=== PATIENT | female | born 1955 | race Caucasian/White ===

== ENCOUNTER → 2016-04-08 | Outpatient (CLI) | payer OTHER, BC ==
[2016-04-08 10:31] LABS: ANION GAP 5 MEQ/L (8-16); BLOOD UREA NITROGEN 16 MG/DL (7-18); CALCIUM LEVEL 8.9 MG/DL (8.8-10.2); CARBON DIOXIDE LEVEL 31 MEQ/L (21-32); CHLORIDE LEVEL 105 MEQ/L (98-107); CREATININE FOR GFR 0.71 MG/DL (0.55-1.02); GLOMERULAR FILTRATION RATE > 60.0 (>45); GLUCOSE, FASTING 93 MG/DL (80-110); POTASSIUM SERUM 3.9 MEQ/L (3.5-5.1); SODIUM LEVEL 141 MEQ/L (136-145)
== END ==
LOC: M LAB 09:53
PROVIDERS: ATTEND Internal Medicine
DX: S13.4XXA Sprain of ligaments of cervical spine, initial encounter (principal); X58.XXXA Exposure to other specified factors, initial encounter; Y92.89 Other specified places as the place of occurrence of the external cause; Y93.89 Activity, other specified; Y99.8 Other external cause status

== ENCOUNTER → 2016-08-03 | Outpatient (CLI) | payer BC, OTHER ==
[2016-08-03 13:45] LABS: MEAN CORPUSCULAR HEMOGLOBIN 31.7 pg (27.0-33.0); MEAN CORPUSCULAR HGB CONC 33.2 g/dl (32.0-36.5); MEAN CORPUSCULAR VOLUME 95.5 fl (80.0-96.0); RED CELL DISTRIBUTION WIDTH 13.2 % (11.5-14.5); WHITE BLOOD COUNT 6.7 K/mm3 (4.0-10.0)
[2016-08-03 14:15] LABS: ALBUMIN 3.9 GM/DL (3.2-5.2); ALBUMIN/GLOBULIN RATIO 1.15 (1.00-1.93); ALKALINE PHOSPHATASE 79 U/L (45-117); ALT/SGPT 24 U/L (12-78); ANION GAP 7 MEQ/L (8-16); AST/SGOT 16 U/L (15-37); BILIRUBIN,TOTAL 0.3 MG/DL (0.2-1.0); BLOOD UREA NITROGEN 19 MG/DL (7-18); CALCIUM LEVEL 9.2 MG/DL (8.8-10.2); CARBON DIOXIDE LEVEL 29 MEQ/L (21-32); CHLORIDE LEVEL 102 MEQ/L (98-107); CREATININE FOR GFR 0.75 MG/DL (0.55-1.02); GLOMERULAR FILTRATION RATE > 60.0 (>45); GLUCOSE, FASTING 80 MG/DL (80-110); IMMUNOGLOBULIN G 1020 MG/DL (681-1648); POTASSIUM SERUM 4.7 MEQ/L (3.5-5.1); SODIUM LEVEL 138 MEQ/L (136-145); TOTAL PROTEIN 7.3 GM/DL (6.4-8.2)
== END ==
LOC: M SMT 10:28
PROVIDERS: ATTEND Nurse Practitioner Family
DX: D83.9 Common variable immunodeficiency, unspecified (principal)

== ENCOUNTER → 2016-10-04 | Outpatient (CLI) | payer OTHER ==
[2016-10-04 19:40] LABS: ANION GAP 6 MEQ/L (8-16); BLOOD UREA NITROGEN 13 MG/DL (7-18); CALCIUM LEVEL 9.2 MG/DL (8.8-10.2); CARBON DIOXIDE LEVEL 29 MEQ/L (21-32); CHLORIDE LEVEL 106 MEQ/L (98-107); CREATININE FOR GFR 0.72 MG/DL (0.55-1.02); GLOMERULAR FILTRATION RATE > 60.0 (>45); GLUCOSE, FASTING 97 MG/DL (80-110); SODIUM LEVEL 141 MEQ/L (136-145)
== END ==
LOC: M SMT 11:13
PROVIDERS: ATTEND Orthopaedic Surgery
DX: Z79.899 Other long term (current) drug therapy (principal)

== ENCOUNTER → 2016-12-18 | Outpatient (CLI) | payer BC ==
--- NOTE | 2016-12-19 06:10 | REP ---
CHEST, TWO VIEWS: COMPARISON: 10/12/2015. There is no evidence of acute infiltrate. No pleural effusion is seen. The heart is normal in size. The mediastinal silhouette is unremarkable. The visualized osseous structures are intact. IMPRESSION: No acute pulmonary disease. Signed by Massimo Dubois MD 12/19/2016 05:22 P
== END ==
LOC: M LRY 13:39
PROVIDERS: ATTEND Nurse Practitioner Family
DX: R05 Cough (principal)

== ENCOUNTER → 2017-02-21 | Outpatient (CLI) | payer BC ==
[2017-02-21 12:19] LABS: MAGNESIUM LEVEL 2.4 MG/DL (1.8-2.4)
== END ==
LOC: M LRY 09:53
PROVIDERS: ATTEND Internal Medicine Gastroenterology
DX: E55.9 Vitamin D deficiency, unspecified (principal); E56.9 Vitamin deficiency, unspecified; K21.9 Gastro-esophageal reflux disease without esophagitis

== ENCOUNTER → 2017-03-06 | Outpatient (REF) | payer BC, OTHER ==
[2017-03-06 19:57] LABS: BLOOD UREA NITROGEN 12 MG/DL (7-18); CREATININE FOR GFR 0.69 MG/DL (0.55-1.02); GLOMERULAR FILTRATION RATE > 60.0 (>45)
== END ==
LOC: M LAB REF 19:07
PROVIDERS: ATTEND Orthopaedic Surgery
DX: M76.821 Posterior tibial tendinitis, right leg (principal)

== ENCOUNTER → 2017-03-24 | Outpatient (CLI) | payer BC | LOC: M RAD 14:09 | DX: M76.821 Posterior tibial tendinitis, right leg (principal) | CPT/HCPCS: 73721 ==

== ENCOUNTER 2017-05-16 06:00 | Inpatient (IN) | payer BC ==
[2017-05-16] MEDS ORDERED: ROCURONIUM BROMIDE 50 MG/5 ML VIAL As Ordered ×6 (06:57→11:09)
[2017-05-16] MEDS ORDERED: PROPOFOL 200 MG/20 ML VIAL As Ordered ×2 (06:57)
[2017-05-16] MEDS ORDERED: GLYCOPYRROLATE INJ 0.2 MG/ML 2 ML VIAL As Ordered ×4 (06:58→06:59)
[2017-05-16] MEDS: LR 1,000 ML IV ×6 (07:00→15:00)
[2017-05-16] MEDS ORDERED: MIDAZOLAM INJ 2 MG/2 ML VIAL (J2250) As Ordered ×4 (07:04→07:20)
[2017-05-16] MEDS ORDERED: fentaNYL 250 MCG/5 ML INJECTION (J3010) As Ordered ×4 (07:04→12:03)
[2017-05-16] MEDS: VANCOMYCIN HCL 1,000 MG, VIAL MATE ADAPTER 1 EACH in D5W 250 ML IV ×4 (07:05→18:13)
[2017-05-16] MEDS ORDERED: fentaNYL 100 MCG/2 ML INJECTION (J3010) As Ordered ×4 (07:20→14:34)
[2017-05-16] MEDS: MIDAZOLAM INJ 2 MG/2 ML VIAL (J2250) IV ×2 (07:28)
[2017-05-16] MEDS: fentaNYL 100 MCG/2 ML INJECTION (J3010) IV ×10 (07:28→14:57)
[2017-05-16] MEDS ORDERED: ePHEDrine INJ 50 MG/ML VIAL As Ordered ×2 (08:24)
[2017-05-16] MEDS: HEPARIN SOD (PORCINE) 5000 UNITS/ML VIAL As Ordered ×2 (08:30)
[2017-05-16] MEDS: SCOPOLAMINE 1MG TRANSDERMAL PATCH As Ordered ×2 (09:51)
[2017-05-16] MEDS ORDERED: NEOSTIGMINE 10 MG/10 ML VIAL (J2710) As Ordered ×2 (11:40)
[2017-05-16] MEDS ORDERED: ONDANSETRON 4MG/2ML VIAL (J2405) As Ordered ×2 (12:54)
[2017-05-16] MEDS: BUPIVACAINE HCL 0.5% 30 ML VIAL As Ordered ×2 (13:25)
[2017-05-16] MEDS ORDERED: PERCOCET 5MG/325MG TAB As Ordered ×2 (14:33)
[2017-05-16] MEDS: PERCOCET 5MG/325MG TAB PO ×2 (14:37)
[2017-05-16] MEDS ORDERED: HYDROmorphone HCL 1 MG/ML SYRINGE (J1170) IV ×2 (15:00)
[2017-05-16] MEDS ORDERED: oxyCODONE 5MG TAB PO ×2 (15:00)
[2017-05-16] MEDS ORDERED: MORPHINE 2 MG/ML 1ML SYRINGE (J2270) IV ×2 (15:00)
[2017-05-16] MEDS ORDERED: ONDANSETRON 4MG/2ML VIAL (J2405) IV ×2 (15:00)
[2017-05-16] MEDS ORDERED: FLEET ENEMA PR ×2 (15:00)
[2017-05-16] MEDS ORDERED: ROPIvacaine 0.5% 30 ML INJECTION (J2795 PER 1MG) ×2 (15:26)
[2017-05-16] MEDS ORDERED: LIDOCAINE 1% MDV 20ML VIAL ×2 (15:26)
[2017-05-16] MEDS ORDERED: dexameTHASONE 10 MG/1 ML VIAL PRES.FREE (J1100) ×2 (15:26)
[2017-05-16] MEDS: oxyCODONE 5MG TAB PO ×2 (17:12)
[2017-05-16] MEDS: DOCUSATE SODIUM 100 MG CAP PO ×2 (20:28)
[2017-05-16] MEDS: METOCLOPRAMIDE 10 MG TAB PO ×2 (20:28)
[2017-05-16] MEDS: ASPIRIN 81 MG ENTERIC TAB PO ×2 (20:28)
[2017-05-16] MEDS: PANTOPRAZOLE 40MG TAB (PROTONIX) PO ×2 (20:28)
[2017-05-16] MEDS: MONTELUKAST 10 MG TAB PO ×2 (20:28)
[2017-05-16] MEDS: ACETAMINOPHEN 500 MG TAB PO ×2 (20:29)
[2017-05-17] MEDS: VANCOMYCIN HCL 1,000 MG, VIAL MATE ADAPTER 1 EACH in D5W 250 ML IV ×2 (06:26)
[2017-05-17] MEDS: ACETAMINOPHEN 500 MG TAB PO ×6 (06:26→21:48)
[2017-05-17] MEDS: VITAMIN D 1,000 INTERNATIONAL UNITS TABLET PO ×2 (08:14)
[2017-05-17] MEDS: CYANOCOBALAMIN 500 MCG TAB PO ×2 (08:15)
[2017-05-17] MEDS: TOLTERODINE TARTRATE 2 MG LA CAP (DETROL LA) PO ×2 (08:15)
[2017-05-17] MEDS: DOCUSATE SODIUM 100 MG CAP PO ×4 (08:15→20:08)
[2017-05-17] MEDS: ASPIRIN 81 MG ENTERIC TAB PO ×4 (08:15→20:08)
[2017-05-17] MEDS: PANTOPRAZOLE 40MG TAB (PROTONIX) PO ×4 (08:15→20:08)
[2017-05-17] MEDS: METOCLOPRAMIDE 10 MG TAB PO ×4 (08:15→20:08)
[2017-05-17] MEDS: oxyCODONE 5MG TAB PO ×8 (08:18→21:47)
[2017-05-17] MEDS: MORPHINE 4 MG/ML 1ML VIAL (J2270) IV ×6 (13:30→23:56)
[2017-05-17] MEDS: MONTELUKAST 10 MG TAB PO ×2 (20:08)
[2017-05-18] MEDS: ACETAMINOPHEN 500 MG TAB PO ×2 (05:14)
[2017-05-18] MEDS: oxyCODONE 5MG TAB PO ×4 (05:15→12:07)
[2017-05-18] MEDS ORDERED: oxyCODONE 5MG TAB PO ×2 (07:45)
[2017-05-18] MEDS: METOCLOPRAMIDE 10 MG TAB PO ×2 (08:46)
[2017-05-18] MEDS: VITAMIN D 1,000 INTERNATIONAL UNITS TABLET PO ×2 (08:46)
[2017-05-18] MEDS: DOCUSATE SODIUM 100 MG CAP PO ×2 (08:47)
[2017-05-18] MEDS: TOLTERODINE TARTRATE 2 MG LA CAP (DETROL LA) PO ×2 (08:47)
[2017-05-18] MEDS: PANTOPRAZOLE 40MG TAB (PROTONIX) PO ×2 (08:47)
[2017-05-18] MEDS: ASPIRIN 81 MG ENTERIC TAB PO ×2 (08:47)
[2017-05-18] MEDS: CYANOCOBALAMIN 500 MCG TAB PO ×2 (08:47)
== END 2017-05-18 12:25 | disposition home or self-care (01) | DRG 313 ==
LOC: M OR 06:00 → M MS5PR 15:20
PROC: 0LXV0ZZ Transfer Right Foot Tendon, Open Approach (ICD-10-PCS; principal; 2017-05-16 07:30)
PROC: 0SQF0ZZ Repair Right Ankle Joint, Open Approach (ICD-10-PCS; 2017-05-16 07:30)
PROC: 0LSV0ZZ Reposition Right Foot Tendon, Open Approach (ICD-10-PCS; 2017-05-16 07:30)
PROC: 0QHL04Z Insertion of Internal Fixation Device into Right Tarsal, Open Approach (ICD-10-PCS; 2017-05-16 07:30)
DX: M65.871 Other synovitis and tenosynovitis, right ankle and foot (principal); M24.574 Contracture, right foot; M77.51 Other enthesopathy of right foot and ankle; M21.41 Flat foot [pes planus] (acquired), right foot
CPT/HCPCS: 27691

== ENCOUNTER → 2017-07-31 | Outpatient (CLI) | payer BC | LOC: M SMT 11:19 | DX: R10.9 Unspecified abdominal pain (principal) | CPT/HCPCS: 76770 ==

== ENCOUNTER → 2017-10-27 | Outpatient (REF) | payer BC ==
[2017-10-27 12:15] LABS: BASO % 0.3 % (0.0-1.0); EOS # 0.1 10^3/uL (0.0-0.50); EOS % 0.9 % (0.0-3.0); HEMOGLOBIN 12.9 g/dl (12.0-15.5); IMMATURE GRANULOCYTE % 0.3 % (0-3.0); LYMPH # 1.8 10^3/uL (1.5-4.5); LYMPH % 31.5 % (24.0-44.0); MEAN CORPUSCULAR HEMOGLOBIN 29.9 pg (27.0-33.0); MEAN CORPUSCULAR HGB CONC 32.3 g/dl (32.0-36.5); MEAN CORPUSCULAR VOLUME 92.8 fl (80.0-96.0); MONO # 0.5 10^3/uL (0.0-0.8); NEUTROPHILS # 3.3 10^3/uL (1.8-7.7); PLATELET COUNT, AUTOMATED 246 10^3/uL (150-450); RED BLOOD COUNT 4.31 10^6/uL (4.00-5.40); RED CELL DISTRIBUTION WIDTH 13.7 % (11.5-14.5); WHITE BLOOD COUNT 5.8 10^3/uL (4.0-10.0)
[2017-10-27 12:22] LABS: C REACTIVE PROTEIN QUANTITATIV 0.35 MG/DL (0.00-0.30)
[2017-10-27 12:34] LABS: ERYTHROCYTE SEDIMENTATION RATE 9 mm/hr (0-30)
[2017-10-27 12:37] LABS: TOTAL 25(OH) VITAMIN D 32.9 NG/ML (30.0-100.0)
== END ==
LOC: M LABDRAW1 12:06
DX: M79.671 Pain in right foot (principal)
CPT/HCPCS: 82306

== ENCOUNTER → 2018-09-06 | Outpatient (REF) | payer BC ==
[~2018-09-06] MED LIST: ACID100C PO; ACID1CAP PO; ALLE25CA PO; ARNU1INH IN; ARNU1INH PO; ASPI81TA26 PO; CALC1TAB60 PO; DETR4CAP PO; DICL-235 PO; DIVIGEL TOP; FOLI1TAB11 PO; HYDR200T3 PO; INCR1INH IN; INCR1INH INH; LORA-753 PO; MAGNESIUM PO; METH2.5T48 PO; METO10TA2 PO; MONT10TA2 PO; MULT1TAB10 PO; OCUVTAB4 PO; OXYC-517 PO; PANT40TA3 PO; PENT10CA PO; PLAQUENIL PO; PRESCAP6 PO; REGL5TAB2 PO; STOO100C PO; TOLT4CAP3 PO; TYLE500T78 PO; VITA-113 PO; VITA100054 PO; VITA100T98 PO; VITA500T PO; VITA500T3 PO; ZANT300T9 PO; magnesium PO
[2018-09-08 15:14] LABS: HPV HYBRID CAPTURE II Negative (Negative)
== END ==
LOC: M SFHCWAGY 11:25
PROVIDERS: ATTEND Nurse Practitioner Family
DX: Z12.72 Encounter for screening for malignant neoplasm of vagina (principal)
CPT/HCPCS: 87624; G0123

== ENCOUNTER → 2018-09-06 | Outpatient (CLI) | payer BC ==
--- NOTE | 2018-09-12 12:07 | REPMRS ---
Patient History The patient states she had a clinical breast exam in 08/2018. Patient has history of skin cancer at age 45 and 62. Family history of breast cancer at age 50 or over in father, pancreatic cancer at age 50 or over in sister, breast cancer at age 50 in paternal cousin. Excisional biopsy of the right breast, 2017. Taking estrogen for 22 years. 3D TOMOSYNTHESIS WAS PERFORMED. The [facility] lifetime risk for breast cancer is 11.9%. Digital Woman Screen Mammo: September 06, 2018 - Exam #: [id number] Bilateral CC and MLO view(s) were taken. Technologist: Marleny Kumar, Technologist Prior study comparison: 2017, bilateral digital woman screen mammo, performed at [facility]. 2015, bilateral digital mammo screening bilat, performed at [facility]. FINDINGS: The breast tissue is heterogeneously dense. This may lower the sensitivity of mammography. There has been no change in the appearance of the mammogram from the prior studies. There is a moderate amount of residual fibroglandular tissue which is fairly symmetric. There is no interval development of dominant mass, areas of architectural distortion, or clustered microcalcification typical of malignancy. Assessment: BI-RADS/ACR category 1 mammogram. Negative Mammogram. Recommendation Routine screening mammogram in 1 year (for women over age 40). This mammogram was interpreted with the aid of an FDA-approved computer-aided dectection system. Electronically Signed By: Noel Luther MD 09/12/18 [id number]
== END ==
LOC: M WHC 10:31
PROVIDERS: ATTEND Nurse Practitioner Family
DX: Z12.31 Encounter for screening mammogram for malignant neoplasm of breast (principal)

== ENCOUNTER → 2019-09-09 | Outpatient (CLI) | payer BC ==
[~2019-09-09] MED LIST changes: -ALLE25CA PO; +CYAN500T8 PO; +MM S100C PO; -MONT10TA2 PO; +MONT10TA4 PO; +PHAR25CA PO; -STOO100C PO; +VITA-243 PO; -VITA500T PO; -VITA500T3 PO
--- NOTE | 2019-09-09 12:16 | REPMRS ---
Patient History The patient states she had a clinical breast exam in August 2019.
== END ==
LOC: M WHC 10:14
PROVIDERS: ATTEND Nurse Practitioner Family
DX: Z12.31 Encounter for screening mammogram for malignant neoplasm of breast (principal); Z80.3 Family history of malignant neoplasm of breast

== ENCOUNTER → 2020-03-02 | Outpatient (CLI) | payer BC ==
[~2020-03-02] MED LIST changes: +CYAN500T14 PO; -CYAN500T8 PO; -MONT10TA4 PO; +MONT5TAB2 PO; +PANT40TA29 PO; -PANT40TA3 PO
== END ==
LOC: M LABSMTC 11:13
PROVIDERS: ATTEND Pediatrics
DX: Z20.828 Contact with and (suspected) exposure to other viral communicable diseases (principal)

== ENCOUNTER → 2020-03-16 | Outpatient (REF) | payer BC | LOC: M LAB REF 16:06 | PROVIDERS: ATTEND Physician Assistant Medical | DX: Z11.59 Encounter for screening for other viral diseases (principal) ==

== ENCOUNTER → 2020-03-25 | Outpatient (CLI) | payer BC ==
[2020-03-25 13:04] LABS: BASO % 0.6 % (0.0-1.0); EOS # 0.1 10^3/uL (0.0-0.5); EOS % 1.4 % (0.0-3.0); HEMOGLOBIN 13.4 g/dl (12.0-15.5); LYMPH # 1.9 10^3/uL (1.5-5.0); LYMPH % 30.4 % (24.0-44.0); MEAN CORPUSCULAR HEMOGLOBIN 31.2 pg (27.0-33.0); MEAN CORPUSCULAR HGB CONC 31.9 g/dl (32.0-36.5); MEAN CORPUSCULAR VOLUME 97.9 fl (80.0-96.0); MONO # 0.5 10^3/uL (0.0-0.8); MONO % 8.3 % (0.0-5.0); NEUTROPHILS # 3.7 10^3/uL (1.5-8.5); PLATELET COUNT, AUTOMATED 258 10^3/uL (150-450); RED BLOOD COUNT 4.29 10^6/uL (4.00-5.40); WHITE BLOOD COUNT 6.3 10^3/uL (4.0-10.0)
[2020-03-25 13:34] LABS: ALT/SGPT 32 U/L (12-78); CREATININE FOR GFR 0.58 MG/DL (0.55-1.30); GLOMERULAR FILTRATION RATE > 60.0 (>45)
[2020-03-25 14:26] LABS: ERYTHROCYTE SEDIMENTATION RATE 7 mm/hr (0-30)
== END ==
LOC: M LAB 12:24
PROVIDERS: ATTEND Student in an Organized Health Care Education/Training Program
DX: M32.8 Other forms of systemic lupus erythematosus (principal)

== ENCOUNTER → 2020-09-16 | Outpatient (CLI) | payer MEDICARE ==
[~2020-09-16] MED LIST changes: +MONT10TA10 PO; -MONT5TAB2 PO
--- NOTE | 2020-09-16 09:29 | REPMRS ---
Patient History The patient states she had a clinical breast exam in August 2020. Patient had skin squamous cancer at age 64. Family history of breast cancer at age 50 or over in father, pancreatic cancer at age 50 or over in sister, breast cancer at age 50 in paternal cousin. Excisional biopsy of the right breast, 2017. Taking estrogen for 25 years. Patient states no breast complaints today. Patient has signed MRS History Sheet. Digital Woman Screen Mammo: September 16, 2020 - Exam #: [id number] Bilateral CC and MLO view(s) were taken. Technologist: Jackie Curry, Technologist Prior study comparison: September 09, 2019, bilateral digital woman screen mammo performed at [facility]. September 06, 2018, bilateral digital woman screen mammo performed at [facility]. August 10, 2016, bilateral digital mammo screening bilat, performed at [facility]. FINDINGS: The breast tissue is heterogeneously dense. This may lower the sensitivity of mammography. The [employer] volumetric breast density category is: C. There is a needle biopsy marker clip noted in the right breast.There is a moderate amount of heterogeneously dense fibroglandular tissue which is fairly symmetric. There is no interval development of dominant mass, architectural distortion, or grouped microcalcification typical of malignancy. There has been no change in the appearance of the mammogram from the prior studies. 3-D tomosynthesis shows no additional findings. Assessment: BI-RADS/ACR category 2 mammogram. Benign Findings. Recommendation Routine screening mammogram of both breasts in 1 year (for women over age 40). This patient's [facility] Lifetime Breast Cancer RIsk is estimated at 10.8 %. This mammogram was interpreted with the aid of an FDA-approved computer-aided dectection system. Electronically Signed By: Noel Luther MD 09/16/20 0929
== END ==
LOC: M WHC 08:15
PROVIDERS: ATTEND Nurse Practitioner Women's Health
DX: Z01.419 Encounter for gynecological examination (general) (routine) without abnormal findings (principal); Z12.31 Encounter for screening mammogram for malignant neoplasm of breast; Z85.828 Personal history of other malignant neoplasm of skin; Z80.3 Family history of malignant neoplasm of breast; Z92.23 Personal history of estrogen therapy
CPT/HCPCS: 77063; 77067; G0101

== ENCOUNTER → 2021-01-20 | Outpatient (CLI) | payer MEDICARE ==
[2021-01-20 16:05] LABS: BASO % 0.3 % (0.0-1.0); EOS # 0.1 10^3/uL (0.0-0.5); EOS % 0.7 % (0.0-3.0); HEMATOCRIT 38.6 % (36.0-47.0); HEMOGLOBIN 12.1 g/dl (12.0-15.5); LYMPH # 2.1 10^3/uL (1.5-5.0); LYMPH % 31.3 % (24.0-44.0); MEAN CORPUSCULAR HEMOGLOBIN 30.7 pg (27.0-33.0); MEAN CORPUSCULAR HGB CONC 31.3 g/dl (32.0-36.5); MONO # 0.6 10^3/uL (0.0-0.8); NEUTROPHILS # 3.9 10^3/uL (1.5-8.5); NEUTROPHILS % 58.4 % (36.0-66.0); PLATELET COUNT, AUTOMATED 211 10^3/uL (150-450); RED BLOOD COUNT 3.94 10^6/uL (4.00-5.40); WHITE BLOOD COUNT 6.7 10^3/uL (4.0-10.0)
[2021-01-20 16:28] LABS: CREATININE FOR GFR 0.68 MG/DL (0.55-1.30); GLOMERULAR FILTRATION RATE > 60.0 (>45)
[2021-01-20 17:21] LABS: ERYTHROCYTE SEDIMENTATION RATE 9 mm/hr (0-30)
== END ==
LOC: M WUC 11:02
PROVIDERS: ATTEND Student in an Organized Health Care Education/Training Program
DX: M32.8 Other forms of systemic lupus erythematosus (principal)

== ENCOUNTER → 2021-06-21 | Outpatient (CLI) | payer MEDICARE ==
[~2021-06-21] MED LIST changes: -MONT10TA10 PO; +MONT10TA97 PO
[2021-06-21 12:20] LABS: BASO % 0.5 % (0.0-1.0); EOS # 0.2 10^3/uL (0.0-0.5); EOS % 2.8 % (0.0-3.0); HEMATOCRIT 38.6 % (36.0-47.0); HEMOGLOBIN 12.7 g/dl (12.0-15.5); LYMPH # 1.6 10^3/uL (1.5-5.0); LYMPH % 19.8 % (24.0-44.0); MEAN CORPUSCULAR HEMOGLOBIN 31.2 pg (27.0-33.0); MEAN CORPUSCULAR HGB CONC 32.9 g/dl (32.0-36.5); MEAN CORPUSCULAR VOLUME 94.8 fl (80.0-96.0); MONO # 0.7 10^3/uL (0.0-0.8); MONO % 9.2 % (2.0-8.0); NEUTROPHILS # 5.3 10^3/uL (1.5-8.5); NEUTROPHILS % 67.3 % (36.0-66.0); PLATELET COUNT, AUTOMATED 211 10^3/uL (150-450); RED BLOOD COUNT 4.07 10^6/uL (4.00-5.40); WHITE BLOOD COUNT 7.8 10^3/uL (4.0-10.0)
[2021-06-21 12:47] LABS: ERYTHROCYTE SEDIMENTATION RATE 11 mm/hr (0-30)
[2021-06-21 12:49] LABS: ALT/SGPT 24 U/L (12-78); CREATININE FOR GFR 0.61 MG/DL (0.55-1.30); GLOMERULAR FILTRATION RATE > 60.0 (>45)
== END ==
LOC: M WUC 10:01
PROVIDERS: ATTEND Student in an Organized Health Care Education/Training Program
DX: M32.19 Other organ or system involvement in systemic lupus erythematosus (principal)

== ENCOUNTER → 2021-09-17 | Outpatient (CLI) | payer MEDICARE | LOC: M WHC 09:21 | PROVIDERS: ATTEND Advanced Practice Midwife | DX: Z12.31 Encounter for screening mammogram for malignant neoplasm of breast (principal) ==

== ENCOUNTER → 2021-11-03 | Outpatient (CLI) | payer MEDICARE ==
[2021-11-03 19:43] LABS: APPEARANCE, URINE MANUAL CLEAR (CLEAR); COLOR, URINE MANUAL YELLOW (YELLOW)
[2021-11-03 19:44] LABS: PH,URINE MAN 5.5 UNITS (5.0 - 7.0)
[2021-11-03 19:45] LABS: BILIRUBIN, URINE MANUAL NEGATIVE (NEGATIVE); BLOOD URINE MANUAL NEGATIVE (NEGATIVE); GLUCOSE, URINE (UA) MANUAL NEGATIVE (NEGATIVE); KETONE, URINE MANUAL NEGATIVE (NEGATIVE); LEUKOCYTE ESTERASE, URINE MAN NEGATIVE (NEGATIVE); NITRITE, URINE MANUAL NEGATIVE (NEGATIVE); PROTEIN, URINE MANUAL NEGATIVE (NEGATIVE); UROBILINOGEN, URINE MANUAL NORMAL (NORMAL)
[2021-11-03 19:48] LABS: BASO % 0.5 % (0.0-1.0); EOS # 0.1 10^3/uL (0.0-0.5); HEMATOCRIT 40.2 % (36.0-47.0); LYMPH # 1.9 10^3/uL (1.5-5.0); LYMPH % 32.1 % (24.0-44.0); MEAN CORPUSCULAR HGB CONC 32.3 g/dl (32.0-36.5); MONO # 0.5 10^3/uL (0.0-0.8); MONO % 8.1 % (2.0-8.0); NEUTROPHILS # 3.4 10^3/uL (1.5-8.5); NEUTROPHILS % 58.1 % (36.0-66.0); PLATELET COUNT, AUTOMATED 247 10^3/uL (150-450); RED BLOOD COUNT 4.06 10^6/uL (4.00-5.40); WHITE BLOOD COUNT 5.9 10^3/uL (4.0-10.0)
[2021-11-03 20:09] LABS: ERYTHROCYTE SEDIMENTATION RATE 4 mm/hr (0-30)
[2021-11-03 20:29] LABS: TOTAL PROTEIN,RANDOM URINE < 5.0 MG/DL (0.0-12.0)
[2021-11-03 21:21] LABS: ALT/SGPT 37 U/L (12-78); CREATININE FOR GFR 0.72 MG/DL (0.55-1.30); GLOMERULAR FILTRATION RATE > 60.0 (>45)
[2021-11-04 17:16] LABS: COMPLEMENT C3 104 MG/DL (90-180); COMPLEMENT C4 30 MG/DL (10-40)
== END ==
LOC: M WUC 14:58
PROVIDERS: ATTEND Student in an Organized Health Care Education/Training Program
DX: M32.8 Other forms of systemic lupus erythematosus (principal)

== ENCOUNTER 2022-02-03 08:29 | Emergency (ER) | payer MEDICARE ==
[2022-02-03 10:58] LABS: BASO % 0.5 % (0.0-1.0); EOS # 0.1 10^3/uL (0.0-0.5); EOS % 1.2 % (0.0-3.0); HEMATOCRIT 38.4 % (36.0-47.0); HEMOGLOBIN 12.4 g/dl (12.0-15.5); LYMPH # 1.3 10^3/uL (1.5-5.0); LYMPH % 30.9 % (24.0-44.0); MEAN CORPUSCULAR HEMOGLOBIN 31.6 pg (27.0-33.0); MEAN CORPUSCULAR HGB CONC 32.3 g/dl (32.0-36.5); MONO # 0.7 10^3/uL (0.0-0.8); MONO % 17.1 % (2.0-8.0); NEUTROPHILS % 50.1 % (36.0-66.0); PLATELET COUNT, AUTOMATED 189 10^3/uL (150-450); RED BLOOD COUNT 3.92 10^6/uL (4.00-5.40)
[2022-02-03 11:45] LABS: ALBUMIN 3.8 GM/DL (3.2-5.2); ALT/SGPT 29 U/L (12-78); BILIRUBIN,DIRECT < 0.1 MG/DL (0.0-0.2); BILIRUBIN,TOTAL 0.2 MG/DL (0.2-1.0); BLOOD UREA NITROGEN 10 MG/DL (7-18); CARBON DIOXIDE LEVEL 31 MEQ/L (21-32); CHLORIDE LEVEL 106 MEQ/L (98-107); CREATININE FOR GFR 0.59 MG/DL (0.55-1.30); GLOMERULAR FILTRATION RATE > 60.0 (>45); GLUCOSE, FASTING 94 MG/DL (70-100); LIPASE 86 U/L (73-393); POTASSIUM SERUM 4.7 MEQ/L (3.5-5.1); SODIUM LEVEL 140 MEQ/L (136-145)
[2022-02-03] MEDS ORDERED: ONDANSETRON 4MG 2ML VIAL IV ONE (13:05)
[2022-02-03] MEDS ORDERED: KETOROLAC 30 MG/ML 1ML VIAL IV ONE (13:05)
[2022-02-03] MEDS ORDERED: METH-1164 PO (15:06)
[2022-02-03] MEDS ORDERED: MEDR4TAB PO (15:09)
[2022-02-03 15:12] VITALS: BP 146/67
== END 2022-02-03 15:25 | disposition home or self-care (01) ==
LOC: M ED 08:29
DX: M54.16 Radiculopathy, lumbar region (principal); M54.50 Low back pain, unspecified; K76.89 Other specified diseases of liver; N28.1 Cyst of kidney, acquired; K21.9 Gastro-esophageal reflux disease without esophagitis; Z79.82 Long term (current) use of aspirin; Z79.899 Other long term (current) drug therapy; Z88.0 Allergy status to penicillin; Z88.2 Allergy status to sulfonamides; Z88.5 Allergy status to narcotic agent; Z91.89 Other specified personal risk factors, not elsewhere classified
CPT/HCPCS: 74176; 80048; 80076; 81002; 83690; 85025; 96374; 96375; 99284; J1885; J2405

== ENCOUNTER → 2022-05-09 | Outpatient (CLI) | payer MEDICARE ==
[~2022-05-09] MED LIST changes: +MEDR4TAB PO; +METH-1164 PO
[2022-05-09 16:24] LABS: BASO % 0.5 % (0.0-1.0); EOS # 0.1 10^3/uL (0.0-0.5); EOS % 1.5 % (0.0-3.0); HEMATOCRIT 39.3 % (36.0-47.0); HEMOGLOBIN 12.5 g/dl (12.0-15.5); LYMPH # 1.6 10^3/uL (1.5-5.0); LYMPH % 29.5 % (24.0-44.0); MEAN CORPUSCULAR HEMOGLOBIN 31.8 pg (27.0-33.0); MEAN CORPUSCULAR HGB CONC 31.8 g/dl (32.0-36.5); MONO # 0.5 10^3/uL (0.0-0.8); MONO % 9.8 % (2.0-8.0); NEUTROPHILS # 3.2 10^3/uL (1.5-8.5); NEUTROPHILS % 58.3 % (36.0-66.0); PLATELET COUNT, AUTOMATED 209 10^3/uL (150-450); RED BLOOD COUNT 3.93 10^6/uL (4.00-5.40); WHITE BLOOD COUNT 5.5 10^3/uL (4.0-10.0)
[2022-05-09 16:37] LABS: ERYTHROCYTE SEDIMENTATION RATE 3 mm/hr (0-30)
[2022-05-09 16:44] LABS: ALT/SGPT 22 U/L (7.0-40); AST/SGOT 29 U/L (<34); CREATININE FOR GFR 0.61 MG/DL (0.55-1.30); GLOMERULAR FILTRATION RATE > 60.0 (>45)
== END ==
LOC: M WUC 10:54
PROVIDERS: ATTEND Student in an Organized Health Care Education/Training Program
DX: M32.8 Other forms of systemic lupus erythematosus (principal)

== ENCOUNTER → 2022-09-21 | Outpatient (CLI) | payer MEDICARE ==
[~2022-09-21] MED LIST changes: -HYDR200T3 PO; +HYDR200T46 PO
== END ==
LOC: M WHC 09:16
PROVIDERS: ATTEND Advanced Practice Midwife
DX: Z12.31 Encounter for screening mammogram for malignant neoplasm of breast (principal)

== ENCOUNTER → 2022-10-06 | Outpatient (REF) | payer MEDICARE | LOC: M SFHCDERM 17:45 | PROVIDERS: ATTEND Dermatology | DX: H02.89 Other specified disorders of eyelid (principal) ==

== ENCOUNTER → 2023-01-31 | Outpatient (REF) | payer MEDICARE | LOC: M SFHCDERM 17:47 | PROVIDERS: ATTEND Physician Assistant | DX: C44.519 Basal cell carcinoma of skin of other part of trunk (principal) ==

== ENCOUNTER → 2023-04-17 | Outpatient (CLI) | payer MEDICARE ==
[2023-04-17 17:36] LABS: BASO % 0.5 % (0.0-1.0); EOS # 0.2 10^3/uL (0.0-0.5); EOS % 3.3 % (0.0-3.0); HEMATOCRIT 40.7 % (36.0-47.0); HEMOGLOBIN 13.1 g/dl (12.0-15.5); LYMPH # 1.3 10^3/uL (1.5-5.0); LYMPH % 20.9 % (24.0-44.0); MEAN CORPUSCULAR HGB CONC 32.2 g/dl (32.0-36.5); MEAN CORPUSCULAR VOLUME 99.5 fl (80.0-96.0); MONO # 0.6 10^3/uL (0.0-0.8); MONO % 10.3 % (2.0-8.0); NEUTROPHILS # 3.9 10^3/uL (1.5-8.5); NEUTROPHILS % 64.7 % (36.0-66.0); PLATELET COUNT, AUTOMATED 198 10^3/uL (150-450); RED BLOOD COUNT 4.09 10^6/uL (4.00-5.40)
[2023-04-17 17:43] LABS: ALBUMIN 3.6 G/DL (3.2-5.2); ALKALINE PHOSPHATASE 79 U/L (46-116); ALT/SGPT 15 U/L (7.0-40); AST/SGOT 22 U/L (<34); BILIRUBIN,TOTAL 0.4 MG/DL (0.3-1.2); BLOOD UREA NITROGEN 12 MG/DL (9-23); CALCIUM LEVEL 9.7 MG/DL (8.3-10.6); CARBON DIOXIDE LEVEL 29 MMOL/L (20-31); CHLORIDE LEVEL 105 MMOL/L (98-107); CREATININE FOR GFR 0.58 MG/DL (0.55-1.30); GLOMERULAR FILTRATION RATE > 60.0 (>45); GLUCOSE, FASTING 87 MG/DL (74-106); POTASSIUM SERUM 3.7 MMOL/L (3.5-5.1); SODIUM LEVEL 138 MMOL/L (136-145); TOTAL PROTEIN 6.7 G/DL (5.7-8.2)
== END ==
LOC: M WUC 10:29
PROVIDERS: ATTEND Internal Medicine
DX: M32.10 Systemic lupus erythematosus, organ or system involvement unspecified (principal)

== ENCOUNTER → 2023-04-17 | Outpatient (CLI) | payer MEDICARE ==
[2023-04-17 17:27] LABS: ALT/SGPT 19 U/L (7.0-40); AST/SGOT 22 U/L (<34); CREATININE FOR GFR 0.57 MG/DL (0.55-1.30); GLOMERULAR FILTRATION RATE > 60.0 (>45)
[2023-04-17 17:34] LABS: BASO % 0.7 % (0.0-1.0); EOS # 0.2 10^3/uL (0.0-0.5); EOS % 3.3 % (0.0-3.0); HEMATOCRIT 40.1 % (36.0-47.0); HEMOGLOBIN 13.1 g/dl (12.0-15.5); LYMPH # 1.3 10^3/uL (1.5-5.0); LYMPH % 22.7 % (24.0-44.0); MEAN CORPUSCULAR HEMOGLOBIN 32.4 pg (27.0-33.0); MEAN CORPUSCULAR HGB CONC 32.7 g/dl (32.0-36.5); MEAN CORPUSCULAR VOLUME 99.3 fl (80.0-96.0); MONO # 0.6 10^3/uL (0.0-0.8); MONO % 9.9 % (2.0-8.0); NEUTROPHILS # 3.7 10^3/uL (1.5-8.5); NEUTROPHILS % 63.2 % (36.0-66.0); PLATELET COUNT, AUTOMATED 215 10^3/uL (150-450); RED BLOOD COUNT 4.04 10^6/uL (4.00-5.40); WHITE BLOOD COUNT 5.8 10^3/uL (4.0-10.0)
[2023-04-17 17:48] LABS: ERYTHROCYTE SEDIMENTATION RATE 9 mm/hr (0-30)
== END ==
LOC: M WUC 10:31
PROVIDERS: ATTEND Student in an Organized Health Care Education/Training Program
DX: M32.8 Other forms of systemic lupus erythematosus (principal)

== ENCOUNTER → 2023-05-16 | Outpatient (REF) | payer MEDICARE | LOC: M SFHCDERM 14:29 | PROVIDERS: ATTEND Physician Assistant | DX: L90.5 Scar conditions and fibrosis of skin (principal) ==

== ENCOUNTER → 2023-07-05 | Outpatient (REF) | payer MEDICARE | LOC: M SFHCDERM 18:03 | PROVIDERS: ATTEND Physician Assistant | DX: C44.622 Squamous cell carcinoma of skin of right upper limb, including shoulder (principal) ==

== ENCOUNTER → 2023-09-29 | Outpatient (REF) | payer MEDICARE | LOC: M LAB REF 13:59 | PROVIDERS: ATTEND Surgery | DX: C44.622 Squamous cell carcinoma of skin of right upper limb, including shoulder (principal) ==

== ENCOUNTER → 2023-10-16 | Outpatient (CLI) | payer MEDICARE ==
[2023-10-16 19:25] LABS: BASO % 0.5 % (0.0-1.0); EOS # 0.1 10^3/uL (0.0-0.5); EOS % 0.8 % (0.0-3.0); HEMATOCRIT 41.1 % (36.0-47.0); HEMOGLOBIN 13.2 g/dl (12.0-15.5); LYMPH # 1.8 10^3/uL (1.5-5.0); LYMPH % 28.6 % (24.0-44.0); MEAN CORPUSCULAR HGB CONC 32.1 g/dl (32.0-36.5); MEAN CORPUSCULAR VOLUME 99.8 fl (80.0-96.0); MONO # 0.5 10^3/uL (0.0-0.8); MONO % 8.6 % (2.0-8.0); NEUTROPHILS # 3.8 10^3/uL (1.5-8.5); NEUTROPHILS % 61.3 % (36.0-66.0); PLATELET COUNT, AUTOMATED 257 10^3/uL (150-450); RED BLOOD COUNT 4.12 10^6/uL (4.00-5.40)
[2023-10-16 20:02] LABS: ALBUMIN 3.9 G/DL (3.2-5.2); ALKALINE PHOSPHATASE 93 U/L (46-116); ALT/SGPT 16 U/L (7.0-40); AST/SGOT 15 U/L (<34); BILIRUBIN,TOTAL 0.4 MG/DL (0.3-1.2); BLOOD UREA NITROGEN 14 MG/DL (9-23); CALCIUM LEVEL 10.2 MG/DL (8.3-10.6); CARBON DIOXIDE LEVEL 30 MMOL/L (20-31); CHLORIDE LEVEL 106 MMOL/L (98-107); CREATININE FOR GFR 0.58 MG/DL (0.55-1.30); GLOMERULAR FILTRATION RATE > 60.0 (>45); GLUCOSE, FASTING 85 MG/DL (74-106); POTASSIUM SERUM 4.5 MMOL/L (3.5-5.1); SODIUM LEVEL 141 MMOL/L (136-145); TOTAL PROTEIN 6.9 G/DL (5.7-8.2)
[2023-10-17 11:04] LABS: WHITE BLOOD COUNT 6.2 10^3/uL (4.0-10.0)
== END ==
LOC: M WUC 11:00
PROVIDERS: ATTEND Internal Medicine
DX: M32.10 Systemic lupus erythematosus, organ or system involvement unspecified (principal)

== ENCOUNTER → 2023-12-19 | Outpatient (REF) | payer MEDICARE | LOC: M SFHCDERM 16:57 | PROVIDERS: ATTEND Dermatology | DX: L90.5 Scar conditions and fibrosis of skin (principal) ==

== ENCOUNTER → 2023-12-21 | Outpatient (CLI) | payer MEDICARE | LOC: M WHC 10:55 | PROVIDERS: ATTEND Advanced Practice Midwife | DX: Z12.31 Encounter for screening mammogram for malignant neoplasm of breast (principal); R92.333 Mammographic heterogeneous density, bilateral breasts ==

== ENCOUNTER → 2023-12-26 | Outpatient (CLI) | payer MEDICARE ==
[2023-12-26 17:22] LABS: BASO % 0.5 % (0.0-1.0); EOS # 0.1 10^3/uL (0.0-0.5); EOS % 1.2 % (0.0-3.0); HEMATOCRIT 38.5 % (36.0-47.0); HEMOGLOBIN 12.3 g/dl (12.0-15.5); LYMPH % 34.1 % (24.0-44.0); MEAN CORPUSCULAR HEMOGLOBIN 31.6 pg (27.0-33.0); MEAN CORPUSCULAR HGB CONC 31.9 g/dl (32.0-36.5); MONO # 0.5 10^3/uL (0.0-0.8); MONO % 8.4 % (2.0-8.0); NEUTROPHILS # 3.2 10^3/uL (1.5-8.5); NEUTROPHILS % 55.5 % (36.0-66.0); PLATELET COUNT, AUTOMATED 215 10^3/uL (150-450); RED BLOOD COUNT 3.89 10^6/uL (4.00-5.40); WHITE BLOOD COUNT 5.7 10^3/uL (4.0-10.0)
[2023-12-26 17:31] LABS: ALT/SGPT 31 U/L (7.0-40); AST/SGOT 34 U/L (<34); CREATININE FOR GFR 0.64 MG/DL (0.55-1.30); GLOMERULAR FILTRATION RATE > 60.0 (>45)
[2023-12-26 17:42] LABS: ERYTHROCYTE SEDIMENTATION RATE 8 mm/hr (0-30)
== END ==
LOC: M WUC 11:42
PROVIDERS: ATTEND Student in an Organized Health Care Education/Training Program
DX: M32.8 Other forms of systemic lupus erythematosus (principal)

== ENCOUNTER → 2023-12-28 | Outpatient (REF) | payer MEDICARE | LOC: M SFHCDERM 18:02 | PROVIDERS: ATTEND Dermatology | DX: L90.5 Scar conditions and fibrosis of skin (principal) ==

== ENCOUNTER → 2024-01-11 | Outpatient (REF) | payer MEDICARE | LOC: M SFHCDERM 15:59 | PROVIDERS: ATTEND Dermatology | DX: L90.5 Scar conditions and fibrosis of skin (principal) ==

== ENCOUNTER → 2024-06-04 | Outpatient (CLI) | payer MEDICARE ==
[2024-06-04 19:10] LABS: C REACTIVE PROTEIN QUANTITATIV < 0.50 MG/DL (<1.0)
[2024-06-04 19:14] LABS: MONO REFLEX EBV COMP NEGATIVE (NEGATIVE)
[2024-06-07 17:48] LABS: EBV VIRAL CAPSID AG IGM < 36.00 U/mL (<36.00)
== END ==
LOC: M WUC 14:49
PROVIDERS: ATTEND Physician Assistant
DX: R53.83 Other fatigue (principal); M32.10 Systemic lupus erythematosus, organ or system involvement unspecified; J02.9 Acute pharyngitis, unspecified

== ENCOUNTER → 2024-10-15 | Outpatient (CLI) | payer MEDICARE ==
[2024-10-15 12:14] LABS: BASO # 0.0 10^3/uL (0.0-0.2); BASO % 0.5 % (0.0-1.0); EOS # 0.1 10^3/uL (0.0-0.5); EOS % 0.8 % (0.0-3.0); LYMPH # 1.8 10^3/uL (1.5-5.0); LYMPH % 27.0 % (24.0-44.0); MONO # 0.7 10^3/uL (0.0-0.8); MONO % 10.2 % (2.0-8.0); NEUTROPHILS # 4.0 10^3/uL (1.5-8.5); NEUTROPHILS % 61.0 % (36.0-66.0); PLATELET COUNT, AUTOMATED 244 10^3/uL (150-450)
[2024-10-15 12:54] LABS: ALT/SGPT 21 U/L (7.0-40); AST/SGOT 30 U/L (<34); CALCIUM LEVEL 9.7 MG/DL (8.3-10.6); CARBON DIOXIDE LEVEL 31 MMOL/L (20-31); CHLORIDE LEVEL 99 MMOL/L (98-107); CREATININE FOR GFR 0.63 MG/DL (0.55-1.30); GLOMERULAR FILTRATION RATE > 90.0 (>39); POTASSIUM SERUM 3.8 MMOL/L (3.5-5.1); SODIUM LEVEL 143 MMOL/L (136-145)
== END ==
LOC: M WUC 10:23
PROVIDERS: ATTEND Internal Medicine
DX: K21.9 Gastro-esophageal reflux disease without esophagitis (principal)

== ENCOUNTER → 2024-10-30 | Outpatient (CLI) | payer MEDICARE ==
[2024-10-30 12:15] LABS: BASO # 0.0 10^3/uL (0.0-0.2); BASO % 0.3 % (0.0-1.0); EOS # 0.0 10^3/uL (0.0-0.5); EOS % 0.5 % (0.0-3.0); LYMPH # 1.6 10^3/uL (1.5-5.0); LYMPH % 27.4 % (24.0-44.0); MONO # 0.5 10^3/uL (0.0-0.8); MONO % 8.6 % (2.0-8.0); NEUTROPHILS # 3.7 10^3/uL (1.5-8.5); NEUTROPHILS % 63.0 % (36.0-66.0); PLATELET COUNT, AUTOMATED 221 10^3/uL (150-450)
[2024-10-30 12:22] LABS: ERYTHROCYTE SEDIMENTATION RATE 6 mm/hr (0-30)
[2024-10-30 12:36] LABS: ALT/SGPT 20 U/L (7.0-40); AST/SGOT 30 U/L (<34); CREATININE FOR GFR 0.59 MG/DL (0.55-1.30); GLOMERULAR FILTRATION RATE > 90.0 (>39)
[2024-10-30 12:37] LABS: COMPLEMENT C4 30.2 MG/DL (12-36)
== END ==
LOC: M WUC 10:49
PROVIDERS: ATTEND Student in an Organized Health Care Education/Training Program
DX: M32.8 Other forms of systemic lupus erythematosus (principal)

== ENCOUNTER → 2024-12-25 | Outpatient (CLI) | payer MEDICARE | LOC: M WHC 14:00 | PROVIDERS: ATTEND Advanced Practice Midwife | DX: Z12.31 Encounter for screening mammogram for malignant neoplasm of breast (principal); R92.333 Mammographic heterogeneous density, bilateral breasts ==